=== PATIENT | female | born 1955 | race Caucasian/White ===

== ENCOUNTER 2022-12-28 18:13 | Emergency (ER) | payer MEDICARE, MEDICAID, SELFPAY ==
[2022-12-28 18:41] VITALS: BP 145/70; PULSE 67; RESP 21; TEMP 36.3; O2SAT 95; BMI 46.2
--- NOTE | 2022-12-28 18:45 | XRR_ITS ---
PROCEDURE INFORMATION: Exam: XR Chest Exam date and time: 12/28/2022 6:49 PM Age: 67 years old Clinical indication: Shortness of breath; Additional info: SOB TECHNIQUE: Imaging protocol: Radiologic exam of the chest. Views: 1 view. COMPARISON: No relevant prior studies available. FINDINGS: Lungs: Bibasilar atelectasis versus infiltrate. Pleural spaces: Unremarkable. No pleural effusion. No pneumothorax. Heart/Mediastinum: Cardiomegaly. Bones/joints: Unremarkable. XR/XR chest 1V portable [id number] IMPRESSION: 1. Bibasilar atelectasis versus infiltrate. 2. Cardiomegaly.
[2022-12-28 20:46] LABS: Basophils % 0.3 %; Eosinophils # 0.2 10^3/uL (0.0-0.8); Eosinophils % 2.1 %; Hematocrit 42.4 % (37.0-47.0); Hemoglobin 12.6 g/dL (11.5-15.3); Lymphocytes # 2.5 10^3/uL (0.8-4.8); Lymphocytes % 26.6 %; Mean Corpuscular HGB Conc 29.7 g/dL (30.0-36.0); Mean Corpuscular Hemoglobin 27.4 pg (28.0-34.0); Mean Corpuscular Volume 92.2 fl (81-99); Mean Platelet Volume 9.8 fL (7.4-10.4); Monocytes # 0.7 10^3/uL (0.2-0.9); Monocytes % 7.1 %; Neutrophils # 6.01 10^3/uL (1.8-7.7); Neutrophils % 63.5 %; Nucleated Red Blood Cells % 0 %; Platelet Count 319 10^3/cmm (130-400); Red Cell Distribution Width 13.5 % (12.1-15.1); White Blood Count 9.5 10^3/uL (4.0-10.0)
--- NOTE | 2022-12-28 20:53 | ED_ITS ---
HPI - SOB/Dyspnea General: Chief Complaint: Shortness of Breath/Dyspnea Stated Complaint: 4.5 pounds in 5 days, CHF Time Seen by Provider: 12/28/22 20:39 Source: patient Mode of arrival: ambulatory Limitations: no limitations History of Present Illness: HPI Narrative: 67-year-old female who states she does have a history of congestive heart failure. States she has had some slight dyspnea over the last 3 to 4 days with a 4 pound weight gain she is able to speak in full senses. She states she is in no distress and denies any dyspnea to me currently. She denies any chest pain she is on Lasix at home she wears 3 L at baseline she is 97% here on 3 L. Associated symptoms: Deny abdominal pain, chest pain, fever(s), nausea or vomiting Review of Systems Const: Denies: fever(s), chills, body aches or change in appetite Eyes: Denies: blurry vision or eye discomfort ENMT: Denies: throat pain or dental pain Card: Denies: chest pain Resp: Reports: dyspnea GI: Denies: abdominal pain, nausea, vomiting or diarrhea : Denies: dysuria Musc: Reports: extremity swelling Skin/Breast: Denies: rash Neuro: Denies: headache(s) Psych: Denies: depression Titus/Lymph: Denies: easy bruising All/Imm: Denies: urticaria PFSH ED PFSH: Medical History Chronic CHF Family History Sister Lung disease Cancer Brother Cancer Social History Smoking and tobacco status: current some day smoker Alcohol intake: never Physical Exam 2 Const: COMMON NORMALS: no acute distress, patient oriented x3 and healthy appearing HENMT: COMMON NORMALS: normocephalic and atraumatic HEAD & SCALP: normocephalic and atraumatic Eye: COMMON NORMALS: Equal, round and reactive pupils present and EOMs intact bilaterally PUPIL: Yes Equal, round and reactive pupils present Neck/C-Spine: COMMON NORMALS: full ROM and supple Chest: COMMONS NORMALS: normal inspection of the chest and normal palpation of entire chest wall Resp: COMMON NORMALS: normal respiratory effort, No retractions, No use of accessory muscles and clear to auscultation bilaterally AUSCULTATION: clear to auscultation bilaterally Cardio: COMMON NORMALS: regular rate, regular rhythm and No murmurs present (Cardio) RATE: regular rate RHYTHM: regular rhythm GI: COMMON NORMALS: Normal to inspection, nondistended, normoactive bowel sounds present, Soft to palpation, non-tender and no masses PALPATION: Yes Soft to palpation Extremity: COMMON NORMALS: full ROM NARRATIVE EXTREMITY EXAM: 1+ LE edema Neuro: COMMON NORMALS: patient oriented x3, moves all extremities and no focal motor deficits Psych: COMMON NORMALS: mental status grossly normal, Normal thought process present and cooperative THOUGHT PROCESS: Normal thought process present Skin: COMMON NORMALS: no rashes or lesions noted and no wounds GENERAL SKIN EXAM: no rashes or lesions noted Course Vital Signs: Vital signs: Vital Signs Temperature 97.4 F L 12/28/22 18:41 Pulse Rate 67 12/28/22 18:41 Respiratory Rate 21 H 12/28/22 18:41 Blood Pressure 145/70 12/28/22 18:41 Pulse Oximetry 95 12/28/22 18:41 Oxygen Delivery Me thod 12/28/22 18:41 Oxygen Flow Rate 3 12/28/22 18:41 MDM - SOB/Dyspnea Medical Decision Making Patient presents here with some dyspnea she is well-appearing here she is on her baseline 3 L no distress did give her dose of Lasix to continue her Lasix at home she is stable for discharge she is to follow PCP and return if worsening. Lab Data 12/28/22 20:30 12/28/22 20:30 Labs/Radiology: Radiology Impressions Chest X-Ray 12/28/22 18:45 IMPRESSION: 1. Bibasilar atelectasis versus infiltrate. 2. Cardiomegaly. Laboratory Results WBC 9.5 10^3/uL (4.0-10.0) 12/28/22 20:30 RBC 4.60 10^6/uL (4.1-5.3) 12/28/22 20:30 Hgb 12.6 g/dL (11.5-15.3) 12/28/22 20:30 Hct 42.4 % (37.0-47.0) 12/28/22 20:30 MCV 92.2 fl (81-99) 12/28/22 20: MCH 27.4 pg (28.0-34.0) L 12/28/22 20: MCHC 29.7 g/dL (30.0-36.0) L 12/28/22 20: RDW 13.5 % (12.1-15.1) 12/28/22 20: Plt Count 319 10^3/cmm (130-400) 12/28/22 20: MPV 9.8 fL (7.4-10.4) 12/28/22 20:30 Neut % (Auto) 63.5 % 12/28/22 20: Lymph % (Auto) 26.6 % 12/28/22 20: [place] % (Auto) 7.1 % 12/28/22 20: Eos % (Auto) 2.1 % 12/28/22 20: Baso % (Auto) 0.3 % 12/28/22 20: Neut # (Auto) 6.01 10^3/uL (1.8-7.7) 12/28/22 20: Lymph # (Auto) 2.5 10^3/uL (0.8-4.8) 12/28/22 20: [place] # (Auto) 0.7 10^3/uL (0.2-0.9) 12/28/22 20: Eos # (Auto) 0.2 10^3/uL (0.0-0.8) 12/28/22 20: Baso # (Auto) 0.0 10^3/uL (0.0-0.1) 12/28/22 20: Nucleated RBC % (auto) 0 % 12/28/22 20: Nucleated RBCs # 0.0 /100WBC 12/28/22 20: Sodium 139 mmol/L (136-145) 12/28/22 20: Potassium 4.4 mmol/L (3.5-5.1) 12/28/22 20: Chloride 96 mmol/L (98-107) L 12/28/22 20: Carbon Dioxide 30 mmol/L (22-29) H 12/28/22 20: Anion Gap 17.4 (5-19) 12/28/22 20:30 BUN 16 mg/dL (8-23) 12/28/22 20:30 Creatinine 0.8 mg/dL (0.5-0.9) 12/28/22 20:30 GFR Calculation 71.5 mL/min (90-130) L 12/28/22 20:30 Glucose 115 mg/dL (65-115) 12/28/22 20:30 Calculated Osmolality 290 mOsm/kg (285-295) 12/28/22 20:30 Calcium 9.3 mg/dL (8.5-10.5) 12/28/22 20:30 Total Bilirubin 0.2 mg/dL (0.15-1.2) 12/28/22 20:30 AST 33 U/L (0-32) H 12/28/22 20:30 ALT 20 U/L (0-33) 12/28/22 20:30 Alkaline Phosphatase 106 U/L (35-105) H 12/28/22 20:30 NT-Pro-B Natriuret Pep 164 pg/mL (0-125) H 12/28/22 20:30 Total Protein 7.0 g/dL (6.6-8.7) 12/28/22 20:30 Albumin 4.1 g/dL (3.5-5.2) 12/28/22 20:30 Globulin 2.9 g/dL (1.3-4.6) 12/28/22 20:30 Discharge Plan Discharge Patient Disposition: Home Clinical Impression: Congestive heart failure Condition: Stable Prescriptions: No Action Gale-D 24 Hour 180-240 mg tablet extended release 24 hr 1 tab PO QAM furosemide 20 mg tablet 20 mg PO DAILY multivitamin Tablet 1 tab PO DAILY fluticasone propionate [Flonase Allergy Relief] 50 mcg/actuation spray,genao spension 1 spray intranasal DAILY Rx Instructions: administer into each nostril albuterol sulfate 2.5 mg /3 mL (0.083 %) solution for nebulization 2.5 mg inhalation Q4H PRN budesonide-formoterol [Symbicort] 160-4.5 mcg/actuation HFA aerosol inhaler 2 puff inhalation BID fluoxetine [Prozac] 40 mg capsule 40 mg PO DAILY promethazine-DM 6.25-15 mg/5 mL syrup 5 ml PO Q6H PRN (Reason: cough) albuterol sulfate [Proventil HFA] 90 mcg/actuation HFA aerosol inhaler 2 puff inhalation Q6H PRN potassium chloride 20 mEq tablet extended release 20 meq PO DAILY Trelegy Ellipta 200-62.5-25 mcg blister with device 1 inh inhalation DAILY Discharge Orders: Discharge ED (Routine); Ordered 12/28/22 Ordered By: Vannessa Garcia Referrals: Raúl Estrada FNP [Primary Care Provider] - Discharge Diet: Advance as tolerated Discharge Activity: Resume usual activity Patient Instructions: Heart Failure (ED) Coding Level of Care Code ED Forensic Analyst for Chg Fwd Exam Comprehensive
[2022-12-28 21:20] LABS: Albumin Level 4.1 g/dL (3.5-5.2); Alkaline Phosphatase 106 U/L (35-105); Blood Urea Nitrogen 16 mg/dL (8-23); Calcium 9.3 mg/dL (8.5-10.5); Carbon Dioxide 30 mmol/L (22-29); Chloride 96 mmol/L (98-107); Globulin 2.9 g/dL (1.3-4.6); Glomerular Filtration Rate 71.5 mL/min (90-130); Glucose 115 mg/dL (65-115); NT Pro B Type Natriuretic Pept 164 pg/mL (0-125); Osmolality Calculated 290 mOsm/kg (285-295); Sodium 139 mmol/L (136-145); Total Bilirubin 0.2 mg/dL (0.15-1.2)
[2022-12-28 21:22] LABS: Anion Gap 17.4 (5-19)
[2022-12-28 21:23] LABS: Alanine Aminotransferase 20 U/L (0-33); Aspartate Amino Transferase 33 U/L (0-32); Potassium 4.4 mmol/L (3.5-5.1)
[2022-12-28] MEDS: FUROsemide 10 mg/mL SDV 10mL 80 MG IVP (21:51)
[2022-12-28 22:20] VITALS: BP 149/88; PULSE 78; RESP 18; O2SAT 97
== END 2022-12-28 22:10 | disposition home or self-care (01) ==
PROVIDERS: Emergency Provider Emergency Medicine; PCP Nurse Practitioner
DX: I50.9 Heart failure, unspecified (principal); F17.210 Nicotine dependence, cigarettes, uncomplicated
CPT/HCPCS: 71045; 80053; 83880; 85025; 96374; 99284; J1940

== ENCOUNTER → 2023-02-19 16:58 | Outpatient (BNVA) | payer MEDICARE, MEDICAID, SELFPAY | PROVIDERS: PCP Nurse Practitioner; Visit Provider Internal Medicine Cardiovascular Disease | DX: I50.9 Heart failure, unspecified (principal); N18.9 Chronic kidney disease, unspecified; R06.02 Shortness of breath | CPT/HCPCS: 80048; 83880; 84443; 99205 ==

== ENCOUNTER 2023-03-14 14:18 | Outpatient (CLI) | payer MEDICARE, MEDICAID, SELFPAY ==
--- NOTE | 2023-03-14 14:30 | USCV_ITS ---
Francheska Andrade Age: 67 Gender: F : 1955 Exam Date: 03/14/2023 14:50 Ordering Phys: Jamee Samuel MD ([email or web address]) Technologist: DORA Exam Location: [facility] – [place] Indication: CHRONIC HEART FAILURE BP: 123 / 70 HR: 107 Rhythm: Sinus Technical Quality: Suboptimal MEASUREMENTS (Male / Female) Normal Values 2D ECHO LVOT Diameter 2.0 cm LV Ejection Fraction MOD 2C 68.8 % LV Ejection Fraction 2C AL 69.3 % LA Diameter 3.6 cm LA Width 3.1 cm LA Height 3.9 cm RA Width 3.1 cm RA Height 4.2 cm Aorta at Sinotubular Diameter 2.4 cm DOPPLER AV Peak Velocity 132.0 cm/s LVOT Peak Velocity 104.0 cm/s AV Area Cont Eq vti 1.7 cm squared AV Area Cont Eq pk 2.5 cm squared MV Peak Velocity 80.0 cm/s MV Area PHT 3.7 cm squared Mitral E to A Ratio 0.9 MV E' Velocity 35.0 cm/s Mitral E to MV E' Ratio 8.3 Mitral E to LV E' Lateral Ratio 7.7 Mitral E to LV E' Septal Ratio 9.2 TR Peak Velocity 177.8 cm/s TR Peak Gradient 12.6 mmHg TR Mean Velocity 150.2 cm/s TR Mean Gradient 9.6 mmHg TR Velocity Time Integral 43.8 cm TV Peak E Velocity 36.0 cm/s Right Atrial Pressure 8.0 mmHg Pulmonary Artery Systolic Pressu 20.6 mmHg PV Peak Velocity 121.0 cm/s RV Acceleration Time 0.1 s RV Ejection Time 0.3 s RV AcT/ET 0.4 FINDINGS Left Ventricle Normal left ventricular size and systolic function, EF 71 %. Grade I/IV diastolic dysfunction (abnormal relaxation filling pattern), normal to mildly elevated filling pressures. No regional wall motion abnormalities. Right Ventricle Mildly increased right ventricular size. Normal ejection fraction Right Atrium Mildly increased right atrial size. Left Atrium Mildly increased left atrial size. Mitral Valve No gross abnormalities noted Aortic Valve Aortic valve not well visualized. Tricuspid Valve Tricuspid valve not well visualized. Pulmonic Valve Pulmonic valve not well visualized. Pericardium No pericardial effusion. Aorta Normal aortic annulus size. IVC Inferior vena cava not visualized. CONCLUSIONS Normal left ventricular size and systolic function, EF 71 %. Grade I/IV diastolic dysfunction (abnormal relaxation filling pattern), normal to mildly elevated filling pressures. No regional wall motion abnormalities. There is no pericardial effusion. Mildly increased right ventricular size. Normal ejection fraction. Mild biatrial enlargement. (Echo contrast - Optison was used to delineate the endocardium and to estimate the LV ejection fraction) Dr Jamee Samuel MD [facility] (Electronically Signed) Final Date: 16 March 2023 14:19 S
[2023-03-14] MEDS: perflutren protein-a microsphr 0.22 mg/mL SDV 3 mL IV (15:25)
== END 2023-03-14 14:19 | disposition home or self-care (01) ==
LOC: RAD 14:20
PROVIDERS: PCP Nurse Practitioner; Visit Provider Internal Medicine Cardiovascular Disease
DX: R06.09 Other forms of dyspnea (principal); I51.7 Cardiomegaly
CPT/HCPCS: C8929; Q9956

== ENCOUNTER 2023-03-26 08:45 | Outpatient (CLI) | payer MEDICARE, MEDICAID, SELFPAY ==
[2023-03-26 08:50] VITALS: BMI 46.0
--- NOTE | 2023-03-26 09:01 | ECG_ITS ---
[facility] Test Date: 2023-03-26 Pat Name: Francheska Andrade Department: Room: Gender: Female Regulatory Compliance Specialist: : 1955 Requested By: Jamee Samuel Order Number: [id number] Cherie MD: Jamee Samuel M.D. Interpretive Statements NAME OF STUDY: LEXISCAN SESTAMIBI STRESS TEST INDICATION: CHF, PROCEDURE: At the baseline, the EKG revealed normal sinus rhythm with right bundle branch block pattern. Diffuse nonspecific ST-T changes. Occasional PVCs. The baseline heart was 92 bpm with a blood pressue of 99/65 mm of Hg Lexiscan was infused over a period of 20 seconds. A total of 0.4 milligrams of Lexiscan was infused. The stress phase was continued for a total of 5 minutes. Heart rate at the end of the stress phase was 104 bpm with a blood pressure 118/67 mm of Hg. The EKG at the peak infusion revealed no significant changes. Sestamibi was injected 20 seconds after the Lexiscan infusion. Heart rate at the end of the recovery phase was 99 bpm with a blood pressure of 107/63 mm of Hg. CONCLUSION: 1. No significant EKG changes with the LexiScan infusion 2. No LexiScan induced chest pain or cardiac arrhythmia 3. Normal blood pressure and heart rate response 4. Sestamibi/sestamibi perfusion scan pending; see separate report. Electronically Signed On 03-28-2023 21:56:18 CDT by Jamee Samuel M.D. [email or web address]
--- NOTE | 2023-03-26 09:02 | NMCV_ITS ---
NM dre perf SPECT r/s* [id number] Francheska Andrade Age: 67 Gender: F : 1955 Exam Date: 03/26/2023 09:58 Ordering Phys: Jamee Samuel MD ([email or web address]) Technologist: INOCENTE Grande Exam Location: [facility] Indications: HYPERTENSION, CONGESTIVE HEART FAILURE STRESS TEST Please see separate stress test report in [facility] for full findings IMAGE PROTOCOL Rest/Stress 1 Lexiscan Day Radiopharmaceutical Dose (mCi) Administration Site Administered by Rest: Tc-99m 10.4 IV INOCENTE Rosenberg Sestamibi Stress:Tc-99m 33.0 IV INOCENTE Rosenberg Sestamibi Rest: 26-Mar-2023 60 Discovery 630 Stress: 26-Mar-2023 30 Discovery 630 0.4mg Lexiscan. Supine position only as patient was unable to lay prone. SPECT RESULTS Technical Quality: Excellent Raw Data Analysis: Normal Image Corrections: No attenuation or motion correction applied Summed Stress Score: 7 Summed Rest Score: 5 Summed Difference Score: 3 PERFUSION FINDINGS Moderate area of moderately decreased tracer uptake in the mid anterolateral, inferolateral, apical lateral and apical anterior regions. Some reversibility was noted in the anterolateral and inferolateral regions. FUNCTIONAL RESULTS (calculated via Gated SPECT) Stress Image LV EF (%): 68 Stress EDV (mL):59 TID: 1.1 Stress ESV (mL):19 FUNCTIONAL FINDINGS: Segmental wall motion analysis revealing no gross wall motion abnormalities. IMPRESSIONS 1. Myocardial perfusion imaging revealing moderate area of moderately decreased tracer uptake in the anterolateral, inferolateral and apical regions with some reversibility, suggesting myocardial scarring in the distribution of the left circumflex artery with some areas of ischemia. 2. Normal LV ejection fraction of 68%. 3. LV wall motion analysis revealing no gross wall motion abnormalities. 4. Normal LV volume No similar previous studies are available for comparison Dr Jamee Samuel MD [facility] (Electronically Signed) Final Date: 27 Mar 2023 01:01 S
[2023-03-26] MEDS: regadenoson 0.4 Mg/5 ml Syringe IVP (10:31)
[2023-03-26] MEDS: ondansetron 2 mg/ML SDV 2 mL 4 MG IVP (10:51)
[2023-03-26 10:54] VITALS: BP 107/63; PULSE 99
== END 2023-03-26 08:46 | disposition home or self-care (01) ==
LOC: CDL 08:46
PROVIDERS: PCP Nurse Practitioner; Visit Provider Internal Medicine Cardiovascular Disease
DX: I50.32 Chronic diastolic (congestive) heart failure (principal); I10 Essential (primary) hypertension; R60.0 Localized edema
CPT/HCPCS: 36415; 78452; 93017; 96374; 96375; A9500; J2405; J2785

== ENCOUNTER → 2023-04-08 14:21 | Outpatient (BNVA) | payer MEDICARE, MEDICAID, SELFPAY | PROVIDERS: PCP Nurse Practitioner; Visit Provider Internal Medicine Cardiovascular Disease | DX: I11.0 Hypertensive heart disease with heart failure (principal); I50.32 Chronic diastolic (congestive) heart failure; J44.9 Chronic obstructive pulmonary disease, unspecified; R93.1 Abnormal findings on diagnostic imaging of heart and coronary circulation; R06.02 Shortness of breath; F17.200 Nicotine dependence, unspecified, uncomplicated; R07.89 Other chest pain | CPT/HCPCS: 80048; 83880; 99214 ==

== ENCOUNTER 2023-05-14 14:19 | Oncology outpatient (recurring) (ONCR) | payer MEDICARE, MEDICAID, SELFPAY | END 2023-05-24 23:59 | disposition home or self-care (01) | PROVIDERS: PCP Nurse Practitioner; Visit Provider Internal Medicine Medical Oncology | DX: D72.9 Disorder of white blood cells, unspecified (principal); J44.9 Chronic obstructive pulmonary disease, unspecified; Z99.81 Dependence on supplemental oxygen; E66.9 Obesity, unspecified; Z68.42 Body mass index [BMI] 45.0-49.9, adult; Z79.899 Other long term (current) drug therapy; Z87.891 Personal history of nicotine dependence | CPT/HCPCS: 99203 ==

== ENCOUNTER 2023-06-07 08:17 | Day surgery (SDC) | payer MEDICARE, MEDICAID, SELFPAY ==
[2023-06-06 08:36] VITALS: BMI 45.6
[2023-06-07 08:33] VITALS: BP 147/95; PULSE 78; RESP 20; TEMP 36.3; O2SAT 96
--- NOTE | 2023-06-07 08:45 | ANES.PREANE2 ---
Pre-Anesthetic Assessment Height/Weight: Height 1.68 m Weight 128.367 kg Temp Pulse Resp BP Pulse Ox O2 Del Method O2 Flow Rate 97.3 F L 78 20 H 147/95 96 Nasal Cannula 3 06/07/23 08:33 06/07/23 08:33 06/07/23 08:33 06/07/23 08:33 06/07/23 08:33 06/07/23 08:33 06/07/23 08:33 Operation Date: 06/07/23 09:30 Proposed Procedures p 89409 COLON Z12.11(Not Applicable) - Bala Alvarez DO Familial anesthetic complications: None Was Beta Darrel taken within 24 hours: N/A Was Clonidine taken within 24 hours: N/A Last intake: Intake Last Liquid Date 06/06/23 Last Liquid Time 22:00 Last Solid Date 06/05/23 Last Solid Time 21:00 Social No alcohol and No tobacco former smoker Exam alert, oriented x 3, clear to auscultation bilaterally and regular rate & rhythm diminihsed Airway Mallampati: Class III Dentition: full Pulmonary Chronic Obstructive Pulmonary Disease and Sleep Apnea CV/HEM Congestive Heart Failure and Hypertension Metabolic Morbid Obesity Anesthetic Plan ASA status: 4 Anesthesia: MAC Risk of > 500 ml blood loss (7ml/kg in children): No Medications/Allergies Home Medications Medication Instructions Recorded Confirmed Last Taken Type albuterol sulfate 90 mcg/actuation 2 puff inhalation Q6H PRN 09/26/21 06/06/23 06/06/23 History aerosol inhaler (Proventil HFA) Shortness Of Breath fexofenadine-pseudoephedrine ER 1 tab PO QAM 09/26/21 06/06/23 06/06/23 History 180 mg-240 mg tablet,ext.release 24 hr (Gale-D 24 Hour) fluticasone fur. 200 mcg-umeclid 1 inh inhalation DAILY 09/26/21 06/06/23 06/06/23 History 62.5 mcg-vilant 25 mcg inhalat.powder (Trelegy Ellipta) fluticasone propionate 50 1 spray intranasal DAILY 09/26/21 06/06/23 06/06/23 History mcg/actuation nasal spray,suspension (Flonase Allergy Relief) multivitamin 1 tab PO DAILY 09/26/21 06/06/23 06/04/23 History acetaminophen 500 mg capsule 500 mg PO Q6H PRN Pain 02/19/23 06/06/23 06/06/23 History apixaban 5 mg tablet (Eliquis) 5 mg PO BID 02/19/23 06/06/23 06/05/23 History metolazone 5 mg tablet 5 mg PO DAILY PRN water retention 02/19/23 06/06/23 06/06/23 History potassium chloride 20 mEq 20 meq PO DAILY 02/19/23 06/06/23 06/06/23 History tablet,extended release vitamin B comp and C no.3 15 mg-10 1 cap PO DAILY 02/19/23 06/06/23 06/04/23 History mg-50 mg-5 mg-300 mg capsule (B Complex Plus Vitamin C) furosemide 20 mg tablet 40 mg PO BID 03/07/23 06/06/23 06/06/23 History Allergies Allergy/AdvReac Type Severity Reaction Status Date / Time iodine Allergy Severe Hives Verified 06/06/23 08:20 PFSH Anesthesia Medical History Acute on chronic diastolic heart failure Asthma Chronic CHF Cigarette smoker COPD (chronic obstructive pulmonary disease) Depression Hx of ectopic Localized edema Seasonal allergies Shortness of breath Surgical History History of surgery on arm Family History Sister Lung disease Cancer Brother Cancer Social History Smoking and tobacco status: former smoker Alcohol intake: never Substance/Drug Use: never Data Anesthesia Cardiac Studies: Echocardiogram 03/14/23 Sestamibi Stress Test (Cardiology) 03/26/23
[2023-06-07] MEDS: sodium chloride 0.9% 1,000 ML 30 ML IV (08:51)
--- NOTE | 2023-06-07 09:03 | W.PM.OPSUD ---
Surgery/Procedure H&P Update DATE OF PROCEDURE: June 07, 2023 DATE H&P PERFORMED: 05/14/23 H&P UPDATE INFORMATION: I have reviewed H&P completed within last 30 days, I have examined patient prior to procedure and No changes to prior documentation PLANNED PROCEDURE: Operation Date: 06/07/23 09:30 Proposed Procedures p 71940 COLON Z12.11(Not Applicable) - Bala Alvarez DO
[2023-06-07 09:39] VITALS: BP 149/86; PULSE 84; RESP 12; TEMP 36.1; O2SAT 95
[2023-06-07 09:50] VITALS: BP 117/72; PULSE 85; RESP 16; O2SAT 97
[2023-06-07 10:02] VITALS: BP 127/86; PULSE 86; RESP 16; O2SAT 97
--- NOTE | 2023-06-07 10:10 | ANE.PACU2 ---
Inpatient post-anesthesia follow up: Airway intact: Yes Vital signs: Temperature 97 F Pulse Rate 86 Respiratory Rate 16 Blood Pressure 127/86 Pulse Oximetry 97 Oxygen Delivery Me thod Nasal Cannula Oxygen Flow Rate 3 Fraction of Inspir ed Oxygen Hydration adequate: Yes Nausea and vomiting: No Pain level: 1 Mental status: Baseline
== END 2023-06-07 10:21 | disposition home or self-care (01) ==
PROVIDERS: PCP Nurse Practitioner; Visit Provider Surgery
PROC: 0DJD8ZZ Inspection of Lower Intestinal Tract, Via Natural or Artificial Opening Endoscopic (ICD-10-PCS; CPT 45378; principal; 2023-06-07 09:30)
DX: Z12.11 Encounter for screening for malignant neoplasm of colon (principal); D12.5 Benign neoplasm of sigmoid colon; D12.3 Benign neoplasm of transverse colon; K57.30 Diverticulosis of large intestine without perforation or abscess without bleeding; J44.9 Chronic obstructive pulmonary disease, unspecified; G47.30 Sleep apnea, unspecified; I11.0 Hypertensive heart disease with heart failure; E66.01 Morbid (severe) obesity due to excess calories; Z68.42 Body mass index [BMI] 45.0-49.9, adult; Z79.01 Long term (current) use of anticoagulants; Z87.891 Personal history of nicotine dependence
CPT/HCPCS: 45382; 45385; 88305; J2704; J7030

== ENCOUNTER → 2023-06-18 15:57 | Outpatient (BNVA) | payer MEDICARE, MEDICAID, SELFPAY | PROVIDERS: PCP Nurse Practitioner; Visit Provider Internal Medicine Cardiovascular Disease | DX: R06.02 Shortness of breath (principal); J44.9 Chronic obstructive pulmonary disease, unspecified; I11.0 Hypertensive heart disease with heart failure; I50.32 Chronic diastolic (congestive) heart failure; Z87.891 Personal history of nicotine dependence; R93.1 Abnormal findings on diagnostic imaging of heart and coronary circulation | CPT/HCPCS: 36415; 80048; 83880; 99214 ==

== ENCOUNTER → 2023-06-19 15:54 | Outpatient (BNVA) | payer MEDICARE, MEDICAID, SELFPAY | PROVIDERS: PCP Nurse Practitioner; Visit Provider Surgery | DX: Z09 Encounter for follow-up examination after completed treatment for conditions other than malignant neoplasm (principal) | CPT/HCPCS: 99212 ==